=== PATIENT | female | born 1985 | race Caucasian/White ===

== ENCOUNTER 2017-08-22 16:59 | Emergency (ER) | payer OTHER ==
[~2017-08-22] VITALS: Ht 162.6 cm; Wt 62.1 kg
[2017-08-22 17:19] VITALS: Ht 162.6 cm; Wt 62.1 kg
[2017-08-22 19:31] VITALS: BP 103/65
== END 2017-08-22 19:31 | disposition home or self-care (01) ==
LOC: ED 16:59
DX: J45.909 Unspecified asthma, uncomplicated (principal); R51 Headache
CPT/HCPCS: J1885; J7620; Q0092

== ENCOUNTER 2018-11-17 00:19 | Emergency (ER) | payer OTHER ==
[~2018-11-17] VITALS: Ht 162.6 cm; Wt 66.7 kg
[2018-11-17 00:22] VITALS: Ht 162.6 cm; Wt 66.7 kg
[2018-11-17 03:56] VITALS: BP 108/63
== END 2018-11-17 03:56 | disposition home or self-care (01) ==
LOC: ED 00:19
DX: R06.03 Acute respiratory distress (principal); J45.901 Unspecified asthma with (acute) exacerbation
CPT/HCPCS: J7512; J7613

== ENCOUNTER 2019-02-22 03:11 | Emergency (ER) | payer OTHER ==
[~2019-02-22] VITALS: Ht 162.6 cm; Wt 65.8 kg
[2019-02-22 03:18] VITALS: Ht 162.6 cm; Wt 65.8 kg
[2019-02-22 04:50] VITALS: BP 100/64
== END 2019-02-22 04:50 | disposition home or self-care (01) ==
LOC: ED 03:11
DX: J45.901 Unspecified asthma with (acute) exacerbation (principal)
CPT/HCPCS: J7512

== ENCOUNTER 2019-08-19 21:52 | Emergency (ER) | payer OTHER ==
[~2019-08-19] VITALS: Ht 160 cm; Wt 65.3 kg
[2019-08-19 22:12] VITALS: Ht 160 cm; Wt 65.3 kg
[2019-08-20 01:00] VITALS: BP 120/72
== END 2019-08-20 01:00 | disposition home or self-care (01) ==
LOC: ED 21:52
DX: N10 Acute pyelonephritis (principal); J45.909 Unspecified asthma, uncomplicated
CPT/HCPCS: J0696